=== PATIENT | female | born 1960 | race Caucasian/White ===

== ENCOUNTER → 2023-10-25 | Outpatient (CLI) | payer OTHER ==
--- NOTE | 2023-10-26 12:09 | US ---
EXAMINATION TYPE: US thyroid st tissue head/neck DATE OF EXAM: 10/25/2023 COMPARISON: NONE CLINICAL INDICATION: Female, 63 years old with history of E04.1 THYROID NODULE; patient states h/o no dules, not on meds, no symptoms GLAND SIZE: Right Lobe: 5.3 x 1.7 x 1.5cm Overall Parenchyma: homogeneous Left Lobe: 4.6 x 1.2 x 1.2cm Overall Parenchyma: homogeneous Isthmus Thickness: 0.2 cm NODULES RIGHT: # of nodules measured on right: 0 LEFT: # of nodules measured on left: multiple subcentimeter, measured largest one 1. 0.2 X 0.3 x 0.2 cm, lower, cystic or almost completely cystic, anechoic nodule, which is wider t kumari tall, with smooth margins, without echogenic foci. Prior size: SCREEN CLEANER ISTHMUS: # of nodules measured in the isthmus: 0 Bilateral neck scanned, no evidence of lymphadenopathy. IMPRESSION: Mild enlargement of the right lobe of thyroid. Multiple subcentimeter nodules involving the left thyr oid are 2 small to characterize with the largest measuring 3 mm. 2017 ACR TI-RADS LEVEL: TR-RADS 1 - BENIGN: No FNA *Highest TI-RADS level nodule reported
== END | disposition home or self-care (01) ==
LOC: RADUSWWP 08:58
PROVIDERS: ATTEND Internal Medicine
DX: E04.1 Nontoxic single thyroid nodule (principal)
CPT/HCPCS: 76536

== ENCOUNTER → 2024-08-16 | Outpatient (CLI) | payer OTHER ==
--- NOTE | 2024-08-16 13:00 | BD ---
EXAMINATION TYPE: Axial Bone Density DATE OF EXAM: 08/16/2024 CLINICAL HISTORY: 64 years old Female. ICD-10 CODE: Z78.0 ASYMPTOMATIC MENOPAUSAL STATE , Additional History: Height: 64.5 Weight: 142 FRAX RISK QUESTIONS: Family History (Parent hip fracture): no History of Fracture in Adulthood: no Secondary Osteoporosis: no RISK FACTORS HISTORY OF: Surgery to Spine/Hip(right/left)/Wrist (right/left): no When: MEDICATIONS: Thyroid Medications: no Osteoporosis Medications: no EXAM MEASUREMENTS: Bone mineral densitometry was performed using the [employer] System. Bone mineral density as measured about the Lumbar spine is: ----- L1-L4(G/cm2): 1.146 T Score Values are as follows: ----- L1: -0.1 ----- L2: 0.0 ----- L3: -0.1 ----- L4: -1.0 ----- L1-L4: -0.3 Z Score Values are as follows: ----- L1: 1.4 ----- L2: 1.5 ----- L3: 1.4 ----- L4: 0.5 ----- L1-L4: 1.2 Bone mineral density baseline Bone mineral density about the R hip (g/cm2): 0.944 Bone mineral density about the L hip (g/cm2): 0.944 T Score values are as follows: -----R Neck: -1.7 -----L Neck: -2.2 -----R Total: -0.5 -----L Total: -0.5 Z Score values are as follows: -----R Neck: -0.3 -----L Neck: -0.8 -----R Total: 0.6 -----L Total: 0.6 Bone mineral density baseline FRAX%s: The graph provided illustrates a 10.9% chance for a major osteoporotic fx and a 1.7% chance f or the hips probability for fx in 10 years time. IMPRESSION: Osteopenia (T Score between -2.5 and -1). There is slightly increased risk of fracture and the patient may be considered for treatment. Re-Screen 2-5 years. NOTE: T-SCORE=SD OF THE YOUNG ADULT MEAN. [facility], , 08/16/2024 12:58 PM
== END | disposition home or self-care (01) ==
LOC: RADBDWWP 11:16
PROVIDERS: ATTEND Internal Medicine
DX: M85.80 Other specified disorders of bone density and structure, unspecified site (principal); Z78.0 Asymptomatic menopausal state
CPT/HCPCS: 77080

== ENCOUNTER 2024-10-25 06:34 | Day surgery (SDC) | payer OTHER ==
[2024-10-23 14:19] VITALS: BMI 23.6
[2024-10-25] MEDS: IV FLUID CONTINUATION 1,000 ML IV ONE (07:04)
[2024-10-25 07:07] VITALS: RESP 16; TEMP 97.9
[2024-10-25] MEDS: LACTATED RINGERS 1,000 ML IV SCH (07:13)
[2024-10-25] MEDS ORDERED: PROPOFOL 10 MG/ML 20 ML VIAL IV ONE (07:42)
--- NOTE | 2024-10-25 08:01 | P.PCN ---
Date of Procedure: 10/25/24 Procedure(s) Performed: BRIEF HISTORY: Patient is a 64-year-old pleasant white female scheduled for an elective colonoscopy as a part of screening for colon cancer. PROCEDURE PERFORMED: Colonoscopy with biopsy and snare polypectomy and Endo Clip placed. PREOPERATIVE DIAGNOSIS: Screening for colon cancer IV sedation per Anesthesia. PROCEDURE: After informed consent was obtained, the patient, was brought into the endoscopy unit. IV sedation was administered by Anesthesia under continuous monitoring. Digital rectal examination was normal. Initially the Olympus CF-160 flexible video colonoscope was then inserted in the rectum, gradually advanced into the cecum without any difficulty. Careful examination was performed as the scope was gradually being withdrawn. Ileocecal valve and the appendiceal orifice were visualized and appeared normal. Prep was excellent. Mucosa of the cecum, appeared normal. Ileocecal valve there was a 3 snare polyp that was removed by cold biopsy. In the descending colon there was a 7 mm polyp that was removed by cold snare polypectomy followed by Endo Clip placement because of constant oozing. Rest of the ascending colon, transverse colon,descending colon there was a descending colon, sigmoid colon, and rectum appeared normal. Retroflexion was performed in the rectum and no lesions were seen. The patient tolerated the procedure well. IMPRESSION: 3 mm polyp in the cecal biopsies post cold biopsy 7 mm ascending colon polyp status post cold snare polypectomy followed by Endo Clip placement RECOMMENDATIONS: Findings of this examination were discussed with the patient as well as her family. She was advised to follow-up with the biopsy results. If the biopsy reveals adenoma she can have repeat colonoscopy in 5 years..
[2024-10-25 08:14] VITALS: BP 111/72; PULSE 68
== END 2024-10-25 08:42 | disposition home or self-care (01) ==
LOC: ORWHC2ENDO 06:34
PROVIDERS: ATTEND Internal Medicine Gastroenterology
DX: Z12.11 Encounter for screening for malignant neoplasm of colon (principal); D12.4 Benign neoplasm of descending colon; D12.0 Benign neoplasm of cecum; F41.9 Anxiety disorder, unspecified; Z79.899 Other long term (current) drug therapy; Z85.3 Personal history of malignant neoplasm of breast; Z85.820 Personal history of malignant melanoma of skin
CPT/HCPCS: 45385; 45380; 88305; J2704